=== PATIENT | female | born 1955 | race Hispanic/Latino ===

== ENCOUNTER 2016-09-08 09:23 | Emergency (ER) | payer OTHER ==
[2016-09-08 09:34] VITALS: BMI 25.7
[2016-09-08] MEDS ORDERED: TDAP Vaccine 0.5 mL Syr IM ONE (09:48)
[2016-09-08] MEDS ORDERED: Absorbable Gelatin Sponge Size 12-7 MM STA (09:48)
[2016-09-08 09:49] VITALS: RESP 16; TEMP 97.8; O2SAT 97
--- NOTE | 2016-09-08 09:52 | ED PDOC ---
Arrival/HPI - General Chief Complaint: Abnormal Skin Integrity Time Seen by Provider: 09/08/16 09:48 Historian: Patient, Spouse - History of Present Illness Narrative History of Present Illness (Text): 09/08/16 09:49 Patient presents with laceration to the left second digit which she sustained yesterday when she was cutting lettuce. Patient states that the wound won't stop bleeding despite putting a tight dressing on it, hence evaluation today in the emergency room. Denies any numbness, decrease in range of motion, or any other injury. Has no other complaints otherwise. Tetanus not up-to-date Past Medical History - Provider Review Nursing Documentation Reviewed: Yes - Infectious Disease Hx of Infectious Diseases: None - Cardiac Hx Hypertension: Yes - Endocrine/Metabolic Hx Hypothyroidism: Yes - Psychiatric Hx Substance Use: No - Past Surgical History Past Surgical History: Non-Contributing - Anesthesia Hx Anesthesia Reactions: No Hx Malignant Hyperthermia: No - Suicidal Assessment Feels Threatened In Home Enviroment: No Family/Social History - Physician Review Nursing Documentation Reviewed: Yes Family/Social History: No Known Family HX Smoking Status: Never Smoked Hx Alcohol Use: No Hx Substance Use: No Hx Substance Use Treatment: No Allergies/Home Meds Allergies/Adverse Reactions: Allergies nuts Allergy (Uncoded 09/08/16 09:40) SWELLING Home Medications: Home Meds Medication Instructions Recorded Confirmed Levothyroxine Sodium [Synthroid] 75 mg PO DAILY 11/03/13 09/08/16 Lisinopril [Zestril] 20 mg PO DAILY 11/03/13 09/08/16 Norethindrone AC-Eth Estradiol 1 tab PO DAILY 09/08/16 09/08/16 [Jinteli 1 mg-5 Mcg Tablet] Pravastatin Sodium [Pravachol] 20 mg PO DAILY 09/08/16 09/08/16 Review of Systems - Review of Systems Constitutional: Normal. absent: Fatigue, Weight Change, Fevers Musculoskeletal: Normal. absent: Arthralgias, Back Pain Skin: Normal. absent: Rash, Skin Lesions Physical Exam - Physical Exam Narrative Physical Exam (Text): 09/08/16 09:50 GENERAL APPEARANCE: Patient is awake, alert, oriented x 3, in no acute distress. SKIN: Warm, (-) rash, (-) lesions. (+) 0.5 cm skin avulsion to the distal volar aspect of the L 2nd digit. UPPER EXTREMITY: (-) Tenderness, (-) swelling, (-) ecchymosis; (-) crepitus, (- ) deformity. Tendon function intact. (-) distal neurovascular deficit. 2 point discrimination. Remainder of hand, digits and wrist: (-) injury. Vital Signs Temp Pulse Resp BP Pulse Ox 09/08/16 09:23 97.8 F 101 H 16 152/104 H 97 Medical Decision Making ED Course and Treatment: 09/08/16 09:51 60 yo F presents with skin avulsion to the L 2nd digit. Wound irrigated copiously with water. Gelfoam dressing applied by PA. Tdap IM given. Patient states she fully agrees with and understands discharge instructions. States that she agrees with the plan and disposition. Verbalized and repeated discharge instructions and plan. I have given the patient opportunity to ask any additional questions. Follow up with primary care physician in 1-2 days without fail. Return to the emergency room at any time for any new or worsening symptoms. - Medication Orders Current Medication Orders: Gelatin (Gelfoam Size 12-7) 1 spg MM STAT STA Stop: 09/08/16 09:49 Tetanus/Reduced Diphtheria/Acell Pertussis (Boostrix Vaccine Inj) 0.5 ml IM .ONCE ONE Stop: 09/08/16 09:49 - PA / VICE PRESIDENT OF NEWS / Resident Statement / has reviewed & agrees with the documentation as recorded. Disposition/Present on Arrival - Present on Arrival Any Indicators Present on Arrival: No History of DVT/PE: No History of Uncontrolled Diabetes: No Urinary Catheter: No History of Decub. Ulcer: No History Surgical Site Infection Following: None - Disposition Have Diagnosis and Disposition been Completed?: Yes Diagnosis: Avulsion of skin of finger Disposition: HOME/ ROUTINE Disposition Time: 09:52 Patient Plan: Discharge Condition: GOOD Discharge Instructions (ExitCare): Skin Avulsion (ED) Print Language: [place] Additional Instructions: Thank you for letting us take care of you today. You were treated for contusion and avulsion finger. The emergency medical care you received today was directed at your acute symptoms. It may take several days for your symptoms to resolve. Return to the Emergency Department if your symptoms worsen, do not improve, or if you have any other problems. Please contact your doctor in 2 days for re-evaluation and follow up. Bring any paperwork you were given at discharge with you along with any medications you are taking to your follow up visit. Our treatment cannot replace ongoing medical care by a primary care provider (PCP) outside of the emergency department. Thank you for allowing the [email or web address] team to be part of your care today. Forms: WORK NOTE
[2016-09-08 10:28] VITALS: BP 130/93; PULSE 70
== END 2016-09-08 10:26 | disposition home or self-care (01) ==
LOC: ED 09:23
DX: S61.201A Unspecified open wound of left index finger without damage to nail, initial encounter (principal); W45.8XXA Other foreign body or object entering through skin, initial encounter

== ENCOUNTER 2018-07-04 08:34 | Outpatient (CLI) | payer OTHER | END 2018-07-04 08:35 | disposition home or self-care (01) | LOC: RAD 08:34 ==

== ENCOUNTER 2018-11-06 19:57 | Emergency (ER) | payer MEDICARE ==
[2018-11-06 19:58] VITALS: BMI 25.7
[2018-11-06 20:19] VITALS: TEMP 98.5
[2018-11-06] MEDS ORDERED: Sodium Chloride 0.9% 1,000 ML IV STA (20:31)
[2018-11-06 21:08] LABS: ALB/GLOB RATIO 1.3 (1.1-1.8); ALBUMIN 4.5 g/dL (3.0-4.8); ALT/SGPT 35 U/L (7-56); AST/SGOT 38 U/L (14-36); BLOOD UREA NITROGEN 17 mg/dL (7-21); CALCIUM 9.3 mg/dL (8.4-10.5); GFR NON-AFRICAN AMERICAN > 60; LIPASE 74 U/L (23-300)
[2018-11-06] MEDS ORDERED: Iohexol 350 MG/100 ML VIAL ONE (21:16)
[2018-11-06 21:19] LABS: BASO # 0.02 K/mm3 (0.0-2.0); BASO % 0.2 % (0.0-3.0); EOS % 0.3 % (1.5-5.0); HEMOGLOBIN 13.9 g/dL (12.0-16.0); LYMPH # 1.2 (1.2-3.4); LYMPH % 10.6 % (22.0-35.0); MEAN CELL VOLUME 83.2 fl (80.0-105.0); MEAN CORPUSCULAR HEMOGLOBIN 28.2 pg (25.0-35.0); MEAN CORPUSCULAR HGB CONC 33.9 g/dl (31.0-37.0); MEAN PLATELET VOLUME 9.5 fl (7.0-11.0); MONO # 0.4 (0.1-0.6); RBC 4.93 10^6/uL (3.5-6.1); RED CELL DISTRIBUTION WIDTH 13.4 % (11.5-14.5); WHITE BLOOD COUNT 11.6 10^3/uL (4.5-11.0)
--- NOTE | 2018-11-06 22:01 | ED PDOC ---
Arrival/HPI - General Chief Complaint: Abdominal Pain Time Seen by Provider: 11/06/18 20:16 Historian: Patient - History of Present Illness Narrative History of Present Illness (Text): 11/06/18 21:58 63 year old female with no significant past medical history, presents to the emergency department complaining of abdominal cramping since having an endoscopy and a colonoscopy approximately 3PM today. Patient is passing gas. As per her, the procedure was uncomplicated. Patient denies any fever, chills, chest pain, shortness of breath, nausea, vomiting, diarrhea, urinary symptoms, back pain, neck pain, headache, dizziness, or any other complaints. PMD: Dr. Farrell Time/Duration: Other (3PM) Symptom Onset: Gradual Symptom Course: Unchanged Activities at Onset: Light Past Medical History - Provider Review Nursing Documentation Reviewed: Yes - Infectious Disease Hx of Infectious Diseases: None - Cardiac Hx Pacemaker: No - Pulmonary Hx Respiratory Disorders: Yes Hx Asthma: Yes - Endocrine/Metabolic Hx Hypothyroidism: Yes - Hematological/Oncological Hx Blood Transfusions: No Hx Blood Transfusion Reaction: No - Musculoskeletal/Rheumatological Hx Musculoskeletal Disorders: No - Psychiatric Hx Emotional Abuse: No Hx Physical Abuse: No Hx Substance Use: No - Past Surgical History Past Surgical History: Non-Contributing - Anesthesia Hx Anesthesia Reactions: No Hx Malignant Hyperthermia: No - Suicidal Assessment Feels Threatened In Home Enviroment: No Family/Social History - Physician Review Nursing Documentation Reviewed: Yes Family/Social History: No Known Family HX Smoking Status: Never Smoked Hx Alcohol Use: No Hx Substance Use: No Hx Substance Use Treatment: No Allergies/Home Meds Allergies/Adverse Reactions: Allergies nuts Allergy (Uncoded 11/06/18 20:16) ANAPHYLAXIS Home Medications: Home Meds Medication Instructions Recorded Confirmed Pravastatin Sodium [Pravachol] 10 mg PO DAILY 09/08/16 11/06/18 Ibuprofen [Advil] 200 mg PO PRN PRN 10/30/18 11/06/18 Levothyroxine [Synthroid] 75 mcg PO DAILY 10/30/18 11/06/18 Lisinopril/Hydrochlorothiazide 1 tab PO DAILY 10/30/18 11/06/18 [Lisinopril-Hctz 20-12.5 mg Tab] Omeprazole 20 mg PO DAILY 11/06/18 11/06/18 Review of Systems - Physician Review All systems were reviewed & negative as marked: Yes - Review of Systems Constitutional: absent: Fevers, Other (chills) Respiratory: absent: SOB Cardiovascular: absent: Chest Pain Gastrointestinal: Abdominal Pain. absent: Diarrhea, Nausea, Vomiting Genitourinary Female: absent: Dysuria, Frequency, Hematuria Musculoskeletal: absent: Back Pain, Neck Pain Neurological: absent: Headache, Dizziness Physical Exam Vital Signs Reviewed: Yes Vital Signs Temp Pulse Resp BP Pulse Ox 11/06/18 20:16 98.5 F 110 H 22 141/68 100 Temperature: Afebrile Blood Pressure: Normal Pulse: Tachycardic Respiratory Rate: Normal Appearance: Positive for: Well-Appearing, Non-Toxic, Comfortable Pain Distress: None Mental Status: Positive for: Alert and Oriented X 3 - Systems Exam Head: Present: Atraumatic, Normocephalic Pupils: Present: PERRL Extroacular Muscles: Present: EOMI Conjunctiva: Present: Normal Mouth: Present: Moist Mucous Membranes Neck: Present: Normal Range of Motion Respiratory/Chest: Present: Clear to Auscultation, Good Air Exchange. No: Respiratory Distress, Accessory Muscle Use Cardiovascular: Present: Regular Rate and Rhythm, Normal S1, S2. No: Murmurs Abdomen: Present: Tenderness (minimal upper abdominal tenderness). No: Distention, Peritoneal Signs Back: Present: Normal Inspection Upper Extremity: Present: Normal Inspection. No: Cyanosis, Edema Lower Extremity: Present: Normal Inspection. No: Edema Neurological: Present: GCS=15, CN II-XII Intact, Speech Normal Skin: Present: Warm, Dry, Normal Color. No: Rashes Psychiatric: Present: Alert, Oriented x 3, Normal Insight, Normal Concentration Medical Decision Making ED Course and Treatment: 11/06/18 22:02 Impression: 63 year old female presents complaining abdominal cramping since having an endoscopy and a colonoscopy approximately 3PM today. Plan: -- CT abd & Pelvis IV Contrast -- Labs -- IV Fluids -- Reassess and disposition Prior Visits: Notes and results from previous visits were reviewed. Progress Notes: EXAM: CT Abdomen and Pelvis with IV contrast Electronically signed on November 06, 2018 10:44:40 PM EDT by: Kali Kent M.D. IMPRESSION: Evidence of lacute right colitis as described above. Several pericolonic pockets of gas. Follow up is recommended with colonoscopy after acute phase of inflammation. 11/06/18 23:11 Patient is in no acute distress. I have discussed the results and plan with the patient, who expresses understanding. Patient in agreement with plan to be discharged home. Patient is stable for discharge. Patient was instructed to follow up with physician or return if symptoms worsen or new concerning symptoms arise. - Lab Interpretations Lab Results: Total Bilirubin 1.0 mg/dL (0.2-1.3) 11/06/18 20:45 AST 38 U/L (14-36) H 11/06/18 20:45 ALT 35 U/L (7-56) 11/06/18 20:45 Alkaline Phosphatase 82 U/L (38-126) 11/06/18 20:45 Total Protein 8.0 g/dL (5.8-8.3) 11/06/18 20:45 Albumin 4.5 g/dL (3.0-4.8) 11/06/18 20:45 Globulin 3.5 gm/dL 11/06/18 20:45 Albumin/Globulin Ratio 1.3 (1.1-1.8) 11/06/18 20:45 Lipase 74 U/L (23-300) 11/06/18 20:45 I have reviewed the lab results: Yes - RAD Interpretation Radiology Orders: 11/06/18 20:30 ABD & PELVIS IV CONTRAST ONLY [CT] Stat Irrigation Engineer: Radiologist - Medication Orders Current Medication Orders: Discontinued Medications Sodium Chloride (Sodium Chloride 0.9%) 1,000 mls @ 999 mls/hr IV .Q1H1M STA Stop: 11/06/18 21:31 Last Admin: 11/06/18 20:50 Dose: 999 mls/hr eMAR Start Stop Document 11/06/18 20:50 KV (Rec: 11/06/18 20:52 KV [id number]) Intravenous Solution Start Date 11/06/18 Start Time 20:50 - Scribe Statement The provider has reviewed the documentation as recorded by the Gaston Li Provider Scribe Attestation: All medical record entries made by the Scribe were at my direction and personally dictated by me. I have reviewed the chart and agree that the record accurately reflects my personal performance of the history, physical exam, medical decision making, and the department course for this patient. I have also personally directed, reviewed, and agree with the discharge instructions and disposition.\ Disposition/Present on Arrival - Present on Arrival Any Indicators Present on Arrival: No History of DVT/PE: No History of Uncontrolled Diabetes: No Urinary Catheter: No History of Decub. Ulcer: No History Surgical Site Infection Following: None - Disposition Have Diagnosis and Disposition been Completed?: Yes Diagnosis: Abdominal pain Disposition: HOME/ ROUTINE Disposition Time: 22:45 Condition: GOOD Discharge Instructions (ExitCare): Acute Abdomen (Belly Pain), Adult (DC) Additional Instructions: LILLIAN MONTANEZ, thank you for letting us take care of you today. The emergency medical care you received today was directed at your acute symptoms. If you were prescribed any medication, please fill it and take as directed. It may take several days for your symptoms to resolve. Return to the Emergency Department if your symptoms worsen, do not improve, or if you have any other problems. Please contact your doctor or call one of the physicians/clinics you have been referred to that are listed on the Patient Visit Information form that is included in your discharge packet. Bring any paperwork you were given at discharge with you along with any medications you are taking to your follow up visit. Our treatment cannot replace ongoing medical care by a primary care provider outside of the emergency department. Thank you for allowing the [facility] team to be part of your care today. Follow up with your GI doctor in 2-3 days for re-evaluation and further management. Referrals: Stewart Farrell MD [Primary Care Provider] - Follow up with primary Forms: [employer] ([place])
[2018-11-06 22:22] VITALS: BP 132/74; PULSE 105; RESP 18; O2SAT 98
--- NOTE | 2018-11-07 10:49 | CT ---
Date of service: 11/06/2018 PROCEDURE: CT Abdomen and Pelvis with contrast HISTORY: upper abdominal pain - s/p colonoscopy today COMPARISON: CT scan of the abdomen pelvis dated 07/04/2018. TECHNIQUE: Contrast dose: 100 mL Omnipaque 350 Radiation dose: Total exam DLP = 384.75 mGy-cm. This CT exam was performed using one or more of the following dose reduction techniques: Automated exposure control, adjustment of the mA and/or kV according to patient size, and/or use of iterative reconstruction technique. FINDINGS: LOWER THORAX: Unremarkable. LIVER: Unremarkable. No gross lesion or ductal dilatation. GALLBLADDER AND BILE DUCTS: Unremarkable. PANCREAS: Unremarkable. No gross lesion or ductal dilatation. SPLEEN: Unremarkable. ADRENALS: Unremarkable. No mass. KIDNEYS AND URETERS: Unremarkable. No hydronephrosis. No solid mass. VASCULATURE: Unremarkable. No aortic aneurysm. No aortic atherosclerotic calcification or mural plaque present. BOWEL: Short segment thickening of the ascending colon 2 hepatic flexure with pericolic stranding. APPENDIX: No findings to suggest acute appendicitis. PERITONEUM: Unremarkable. No free fluid. Tiny foci pericolic gas adjacent to ascending colon. LYMPH NODES: Unremarkable. No enlarged lymph nodes. BLADDER: Unremarkable. REPRODUCTIVE: Calcified fundal uterine fibroid. BONES: No acute fracture. OTHER FINDINGS: None. IMPRESSION: Marked short segment thickening of the ascending colon hepatic flexure with pericolic stranding compatible with colitis versus diverticulitis. Tiny foci of pericolic gas.
== END 2018-11-06 23:26 | disposition home or self-care (01) ==
LOC: ED 19:57
DX: R10.9 Unspecified abdominal pain (principal); E03.9 Hypothyroidism, unspecified
CPT/HCPCS: 74177; 80053; 83690; 83735; 85025; 99284; J7030; Q9967